=== PATIENT | male | born 1975 | race African-American/Black ===

== ENCOUNTER 2017-08-20 18:26 | Emergency (ER) | payer OTHER ==
--- NOTE | 2017-08-20 18:32 | PDOC ---
Rapid Medical Evaluation Time Seen by Provider: 08/20/17 18:29 Medical Evaluation: Allergies Allergy/AdvReac Type Severity Reaction Status Date / Time Penicillins Allergy Verified 08/20/17 18:29 shellfish derived Allergy Swelling Verified 08/20/17 18:29 04 18:29 I have performed a brief in-person evaluation of this patient. The patient presents with a chief complaint of: Dr. Portillo sent for abd pain to epigastrum, "worsening x 2 weeks, really bad x 2 week", denies nausea, "but the last two times i tried to defecate i threw up instead, and this morning when i tried, nothing came out but when i wiped it was black", does not remember last BM Pertinent physical exam findings: epigastric tenderness I have ordered the following: labs, abd xray The patient will proceed to the ED for further evaluation. Discharge Disposition - Diagnosis Abdominal pain - Referrals Referrals: Kirit Hassan MD [Primary Care Provider] - - Patient Instructions - Post Discharge Activity
[2017-08-20 18:35] VITALS: BP 147/91; PULSE 81; TEMP 98.8; BMI 29.0
[2017-08-20 19:29] LABS: HEMATOCRIT 39.9 % (35.4-49); HEMOGLOBIN 13.9 GM/dL (11.7-16.9); LYMPH % 23.6 % (8-40); MCH 33.7 pg (25.7-33.7); MCHC 34.7 g/dl (32.0-35.9); MEAN CELL VOLUME 97.2 fl (80-96); MEAN PLT VOLUME 8.1 fl (7.5-11.1); MONO % 6.8 % (3.8-10.2); NEUT % 67.6 % (42.8-82.8); PLATELET COUNT 238 K/MM3 (134-434); RBC 4.11 M/mm3 (4.00-5.60); RDW 13.4 % (11.9-15.9); WHITE BLOOD COUNT 7.8 K/mm3 (4.0-10.0)
[2017-08-20 19:36] LABS: INR 1.19 (0.82-1.09); PROTHROMBIN TIME (PATIENT) 13.4 SEC (9.7-13.0)
--- NOTE | 2017-08-20 20:03 | PDOC ---
History of Present Illness - General Chief Complaint: Pain Stated Complaint: SENT BY PCP Time Seen by Provider: 08/20/17 18:29 - History of Present Illness Initial Comments: 42 year old male with PMH of asthma presenting with 2 weeks of epigastric and RLQ abdominal pain with a few episodes of nausea/ vomiting, constipation, and decreased appetite. Patient states that he had a onset of sharp periumbilical abdominal pain two weeks prior with occasional nausea and vomiting. Patient also states that he drinks three beers everyday, smokes six joints, and smokes six cigarettes daily. Denies diarrhea or bleeding from any orifice but states that his stools have been black along with episodes of constipation. He saw Dr. Hassan today and he sent him into the ED to get a CT scan. 08/20/17 21:28 Past History - Past Medical History Allergies/Adverse Reactions: Allergies Allergy/AdvReac Type Severity Reaction Status Date / Time Penicillins Allergy Verified 08/20/17 18:29 shellfish derived Allergy Swelling Verified 08/20/17 18:29 Home Medications: Ambulatory Orders No Home Medications 0 dose .ROUTE UTDICT 01/03/12 Asthma: Yes COPD: No DVT: No HTN: Yes (non complaints) - Suicide/Smoking/Psychosocial Hx Smoking Status: Yes Smoking History: Current every day smoker Have you smoked in the past 12 months: Yes Number of Cigarettes Smoked Daily: 10 Information on smoking cessation initiated: Yes 'Breaking Loose' booklet given: 08/20/17 Hx Alcohol Use: Yes (daily) Drug/Substance Use Hx: No Substance Use Type: Alcohol, Marijuana Review of Systems - Review of Systems Constitutional: No: Chills, Diaphoresis, Fever HEENTM: No: Eye Pain, Blurred Vision Respiratory: No: Cough, Orthopnea, Shortness of Breath, SOB with Exertion Cardiac (ROS): No: Chest Pain, Edema, Irregular Heart Rate ABD/GI: Yes: Nausea, Poor Appetite, Vomiting, Other (dark/ black stools). No: Diarrhea, Rectal Bleeding : No: Burning, Dysuria, Discharge, Frequency Musculoskeletal: No: Back Pain, Gout, Joint Pain Integumentary: No: Bruising, Change in Color, Erythema, Flushing Neurological: No: Headache, Numbness, Paresthesia Hematologic/Lymphatic: No: Anemia, Blood Clots *Physical Exam - Vital Signs Last Vital Signs Temp Pulse Resp BP Pulse Ox 98.8 F 81 18 147/91 100 08/20/17 18:30 08/20/17 18:30 08/20/17 18:30 08/20/17 18:30 08/20/17 18:30 - Physical Exam General Appearance: Yes: Nourished, Appropriately Dressed. No: Apparent Distress HEENT: positive: EOMI, MARYLOU, Normal ENT Inspection, Normal Voice Neck: positive: Trachea midline, Normal Thyroid, Supple. negative: Tender, Rigid Respiratory/Chest: positive: Lungs Clear, Normal Breath Sounds. negative: Chest Tender, Respiratory Distress, Accessory Muscle Use Cardiovascular: positive: Regular Rhythm, Regular Rate Gastrointestinal/Abdominal: positive: Normal Bowel Sounds, Tender ( periumbilical and RLQ tenderness), Flat, Soft Male Genitalia: positive: normal prostate Rectal Exam: positive: heme negative stool, normal exam, NL Prostate, normal rectal tone. negative: melena, decreased tone, heme positive stool Musculoskeletal: positive: Normal Inspection, CVA Tenderness Extremity: positive: Normal Capillary Refill, Normal Inspection, Normal Range of Motion, Pelvis Stable. 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 Patient states that his montilla is much improved with Tylenol PO and he passed a PO challenge. I counselled him on EtoH and marijuana cessation as this may be causing these symptoms. This is likely a gastritis related to this aforementioned substances vs. a peptic ulcer disease. Will discharge home with GI and PCP follow up. 08/20/17 02:37 *DC/Admit/Observation/Transfer Diagnosis at time of Disposition: Abdominal pain Qualifiers: Abdominal location: generalized Qualified Code(s): R10.84 - Generalized abdominal pain - Discharge Dispostion Disposition: HOME - Referrals Referrals: Kirit Hassan MD [Primary Care Provider] - Tomer Gonzalez DO [Staff Physician] - - Patient Instructions Printed Discharge Instructions: DI for Ileus Additional Instructions: You do not hae any specific infections of your stomach. You also tolerated food before you left. Please follow up with your primary care doctor in threee days and set up an appointment with Dr. Gonzalez for specialized care. Please stick to liquids for the next day and return to the ED if you have any new or worsening symptoms. - Post Discharge Activity
[2017-08-20 20:10] LABS: ANION GAP 6 (8-16); BILIRUBIN,TOTAL 0.4 mg/dL (0.2-1.0); BLOOD UREA NITROGEN 7 mg/dL (7-18); CALCIUM 8.8 mg/dL (8.5-10.1); CHLORIDE 105 mmol/L (98-107); CO2 26 mmol/L (21-32); CREATININE 0.8 mg/dL (0.7-1.3); GLUCOSE,RANDOM 111 mg/dL (74-106); POTASSIUM 3.9 mmol/L (3.5-5.1); SGOT/AST 15 U/L (15-37); SGPT/ALT 28 U/L (12-78); SODIUM 137 mmol/L (136-145); TOT PROT 7.1 g/dl (6.4-8.2)
[2017-08-20 20:11] LABS: ALK PHOS 44 U/L (45-117)
[2017-08-20] MEDS ORDERED: DEXAMETHASONE SOD PHOSPHATE 10 MG/1 ML VIAL IVPUSH ONE (20:33)
[2017-08-20] MEDS ORDERED: DEXAMETHASONE SOD PHOSPHATE 10 MG/1 ML VIAL ONE (20:47)
--- NOTE | 2017-08-20 21:28 | PDOC ---
Attending Attestation - Resident Resident Name: Galilea Salomon - ED Attending Attestation I have performed the following: I have examined & evaluated the patient, The case was reviewed & discussed with the resident, I agree w/resident's findings & plan, Exceptions are as noted - HPI HPI: 08/20/17 21:26 42-year-old male sent in from his doctor's office for imaging studies for abdominal pain. Patient has had lower quadrant pain with nausea and vomiting. He is afebrile - Physicial Exam PE: 08/20/17 21:28 42 wnwd male with N,V and lowe abd pain Only positive on the pt's physical exam is lower abd tenderness to palpation head ncat ne ck supple lungs cta b/l cvs [id number] ext no e/c/c/ neuro no focal neuro deficits,axox3 - Medical Decision Making 08/20/17 21:30 ct scan abd /pel pending 08/21/17 16:59 CT SCAN ABD/PEL no acute abdominal process PT'S SYMPTOMS RESOLVED AND HE ATE DISCHARGED HOME
== END 2017-08-21 00:45 | disposition home or self-care (01) ==
LOC: JER 18:26
PROC: 3E0333Z Introduction of Anti-inflammatory into Peripheral Vein, Percutaneous Approach (ICD-10-PCS; principal; 2017-08-20)
PROC: 3E033GC Introduction of Other Therapeutic Substance into Peripheral Vein, Percutaneous Approach (ICD-10-PCS; 2017-08-20)
DX: R10.31 Right lower quadrant pain (principal); J45.909 Unspecified asthma, uncomplicated; I10 Essential (primary) hypertension
CPT/HCPCS: 36415; 74019-TC-FY; 74177-TC; 80053; 82272; 83690; 85025; 85610; 86850; 86900; 86901; 99282-25; J1100